=== PATIENT | female | born 1945 ===

== ENCOUNTER 2021-09-27 10:03 | Outpatient (REF) | payer SELFPAY ==
[2021-10-03 20:52] LABS: Pancreatic Elastase-1 385 mcg/g
== END 2021-09-27 10:04 | disposition home or self-care (01) ==
LOC: HO.WFDLNP 10:03
PROVIDERS: Visit Provider Internal Medicine Gastroenterology
DX: R19.7 Diarrhea, unspecified (principal)
CPT/HCPCS: 82656